=== PATIENT | male | born 2000 | race Caucasian/White ===

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

== ENCOUNTER 2022-01-02 13:34 | Outpatient (CLI) | payer OTHER, SELFPAY ==
--- NOTE | ~2022-01-02 | XR_ITS ---
EXAM: XR clavicle RT DATE: 01/02/2022 13:43 HISTORY: f/u displaced rt clavicle . COMPARISON: 12/25/2021. FINDINGS: Normal mineralization. Redemonstration of the oblique mid shaft right clavicular fracture, with increased, now 1 1/2 shaft width inferior displacement and increased overlap of 3.6 cm. No lyti c or blastic lesion. Joint spaces are maintained. No erosion or periosteal change. Soft tissues withi n normal limits. IMPRESSION: Right mid shaft clavicular fracture with increased inferior displacement and overlap. No significant interval healing change. Reviewed, dictated and finalized at location K. IMPRESSION: Right mid shaft clavicular fracture with increased inferior displac ement and overlap. No significant interval healing change.
== END 2022-01-02 13:35 | disposition home or self-care (01) ==
PROVIDERS: PCP Pediatrics; Visit Provider Orthopaedic Surgery
DX: S42.021A Displaced fracture of shaft of right clavicle, initial encounter for closed fracture (principal)
CPT/HCPCS: 73000

== ENCOUNTER 2022-01-05 00:27 | Day surgery (SDC) | payer OTHER, SELFPAY ==
[2022-01-03 15:40] VITALS: BMI 28.1
--- NOTE | 2022-01-03 15:49 | PC.NURSE ---
Report to the Outpatient Waiting Room, entrance under the green pavilion located off [facility], at time 0930 on date 01/05/22. OR Time: 1130. - You and your visitor will be asked to self-screen and do not enter if you have any COVID symptoms. - Only one visitor and NO children visitors are allowed at this time. - The patient visitor is requested to leave or wait in car when not with patient due to restrictions. - A mask is required within the hospital. Patients may have clear liquids (water, carbonated beverages, clear teas, apple juice) until 3 hours prior to surgery with a maximum of 20 ounces. - No food from midnight until time of surgery Take the following medications with a SIP of water the morning of surgery: PAIN PILL (IF NEEDED) Medications to discontinue per physician: N/A Date to take last dose: N/A Please no make-up, nail georgian, hairspray, perfume, deodorant, or body powder the day of surgery. No jewelry (including any body piercings) or valuables the day of surgery, leave them at home. Please take a shower or bath the night before, or the morning of, surgery with an antibacterial soap. Wear comfortable, loose fitting clothing. - Jewelry must be removed prior to entering the operating room. Rings and piercings that are not removed may be cut off. - The hospital will not accept responsibility for valuables. - Please leave all valuables, including medications, at home the day of surgery. If you are going home after surgery, a licensed yard driver must drive you home. - NO public transportation without another adult. - We recommend that an adult stay with you for 24 hours following discharge. - We also recommend that you do not drive, make important decision, drink alcoholic beverages, or take any drugs that were not prescribed by your health care provider for at least 24 hours after your discharge time. Follow any additional instructions given to you from your surgeon. If you or anyone in your household have experienced Covid symptoms in the past week, please notify your surgeon or the nurse liaison at the phone number below for possible testing. Telephone instructions given to PT - SHAILESH MONAHAN and asked if any additional questions and then verbalized understanding. Patient advised to call surgeon office or pre surgery nurse liaison [phone] if any additional questions.
[2022-01-05] VITALS (12 sets, daily range): BP systolic 105–128; BP diastolic 53–72; PULSE 60–79; RESP 12–21; TEMP 36.3–36.7; O2SAT 97–100
--- NOTE | ~2022-01-05 | XR_ITS ---
EXAMINATION: XR surgery orthopedic DATE: 01/05/2022 13:14 INDICATION: Right clavicle fracture fixation TECHNIQUE: 2 fluoroscopic images of the lateral right clavicle were obtained during procedure perform ed by Dr. Loyd. Radiologist was not present for the imaging or procedure. The amount of fluoroscop y time used during this procedure was 0.4 minutes. COMPARISON: 01/03/2020 FINDINGS: Interval reduction to near-anatomic alignment of a fracture at the junction of the lateral and middle third of the right clavicle. Fractional fixed the plate and screw along the cephalad margin. Glenohu meral and acromioclavicular joint spaces appear normal. No new fractures identified. IMPRESSION: 1. Near-anatomic alignment post open reduction internal fixation of a lateral right clavicle fracture . Reviewed, dictated and finalized at location A. IMPRESSION: 1. Near-anatomic alignment post open reduction internal fixation of a lateral r ight clavicle fracture.
--- NOTE | 2022-01-05 07:21 | WPDHPUPDATE1 ---
History and Physical Update Update Date/Time: 01/05/22 07:21 History and Physical has been reviewed, including an updated exam of the patient. There are NO changes in the patient's condition. Risks, benefits, and alternatives have been discussed and questions answered. Patient agrees to proceed with procedure.
[2022-01-05] MEDS: ACETAMINOPHEN 500 MG TABLET 1000 MG PO (09:29)
[2022-01-05] MEDS: LACTATED RINGERS 1,000 ML 30 ML IV CONT ×2 (09:30→15:35)
[2022-01-05] MEDS: KETOROLAC 15 MG/ML VIAL (*BKC) IV PUSH (09:36)
--- NOTE | 2022-01-05 10:36 | P.PNAN_ITS ---
Anes - Initial Pre Proc Eval Procedure: Operation Date: 01/05/22 11:00 Proposed Procedures p Open Reduction Internal Fixation Right Clavicle Fracture - Ravinder Loyd MD Date/Time: 01/05/22 10:36 Surgeon: Ravinder Loyd MD Pre Op Diagnosis: right clavicle fracture Patient Data Age: 21 Gender: M Height: 1.73 m Weight: 87 kg Last Vital Signs Temp 97.3 F L 01/05/22 09:30 Pulse 67 01/05/22 09:30 Resp 16 01/05/22 09:30 BP 107/65 01/05/22 09:30 Pulse Ox 99 01/05/22 09:30 O2 Del Method Room Air 01/05/22 09:30 Allergies Allergy/AdvReac Type Severity Reaction Status Date / Time No Known Allergies Allergy Verified 01/05/22 10:13 Home Medications Medication Instructions Recorded Confirmed Type oxycodone-acetaminophen 5 mg-325 1 tablet PO Q6H PRN pain #20 tabs 01/02/22 01/05/22 Rx mg tablet (Percocet) diazepam 5 mg tablet 5 mg PO TID PRN muscle spasm #10 01/04/22 01/05/22 Rx tabs ondansetron 8 mg disintegrating 8 mg PO Q6-8H PRN nausea and 01/04/22 01/05/22 Rx tablet vomiting #10 tabs sennosides 8.6 mg-docusate sodium 1 tab-cap PO BID #30 tabs 01/04/22 01/05/22 Rx 50 mg tablet Patient hx anesthesia problems: none Family hx anesthesia problems: none Results Review: All pre-operative results and documents have been reviewed as part of the pre- operative evaluation. [facility] Surgical History Surgical History Deficient knowledge of leg surgery Mole on inner thigh removed at [facility] in 2006. H/O Spinal surgery cyst removed on spine 2018 at [facility]. Family History Family History Mother Family history non-contributory Social History Social History Smoking status: Current every day smoker Tobacco type: e-cigarettes/vaping Alcohol intake: current Drinks per week: 2 Alcohol use details: social Substance use: current Substance use type: marijuana Living arrangements: with roommate(s) Gender identity (if verbalized by the patient): Male Spiritual care concerns: No Anes - Eval Final PreProcedure Day of Procedure 01/05/22 10:36 Patient weight: overweight Heart: regular rate and rhythm Lungs: clear to auscultation Airway: Mallampati scale class II Neurological: alert and oriented Last oral intake: >/= 8 hours ASA classification: II Emergent: no Anesthetic plan: proceed Anesthesia type and monitoring: general ETT and standard monitoring Results Review: All pre-operative results and documents have been reviewed as part of the pre- operative evaluation. Informed Consent: The patient's anesthetic plan and its attendant risks and benefits were discussed with the patient/family/POA. Questions were solicited and answers provided to the satisfaction of the patient/family/POA.
[2022-01-05] MEDS: ceFAZolin 2 GM/D5W 50 ML 2 GM/50 ML BAG IVPB (11:20)
--- NOTE | 2022-01-05 12:54 | SUR.PREOP ---
1000:PT STATES HAS HAD RECENT IS TEACHING BY ED AND HAS AN INCENTIVE SPIROMETER THE SAME THE ONE PRESENTED BY THE DOCUMENTING RN FOR TEACHING. PT ABLE TO VERBALIZE GOAL VOLUME OF 3000ML PEFORMANCE WITH THE ONE GIVEN TO HIM.
--- NOTE | 2022-01-05 13:24 | W.PM.PROC2 ---
Procedure Note - Detailed Date of Procedure 01/05/22 Pre-op Diagnosis right clavicle fracture Post-op Diagnosis Same Procedure Performed Open reduction internal fixation right clavicle fracture Surgeon Ravinder Loyd MD Service [employer] 1st product safety technical assistant Anesthesia General Indications 21-year-old who fell to the ground and sustained a right clavicle fracture with displacement. Patient desires operative treatment. Indicated for open reduction internal fixation. Findings Butterfly fragment anterior inferior portion of the fracture. Description of Procedure Patient identified in the preoperative holding. Informed consent given. Operative extremity marked. Patient received intravenous antibiotics. Patient brought to the operating room where underwent general anesthetic by anesthesia team. Positioned supine on operating room table. Time-out performed confirming the patient, site of the surgery and the plan. Patient then placed into a modified beach chair position with careful securing of the head and neck and airway. Right shoulder then prepped and draped usual sterile surgical fashion ChloraPrep skin solution. Local anesthetic with 0.5% Marcaine with epinephrine. Utilizing David's lines longitudinal incision was made over the clavicle fracture with a 15 blade knife. Hemostasis controlled electrocautery. Fascia incised in line with skin incision and elevated off of the clavicle medially and laterally. Care was taken not to strip excessive soft tissue from the clavicle or to dissect inferiorly. Fracture was then reduced and provisionally clamped in place. A dorsal 6 hole plate was then positioned and fixed with 3 screws medially and 3 screws distal to the fracture. Image intensification was then brought in and confirmed reduction placement of the hardware. Wound thoroughly irrigated and fascia repaired with 0 Vicryl interrupted suture. Subcutaneous tissue repaired with 2-0 Vicryl interrupted suture and skin repaired with 3-0 Monocryl running subcuticular stitch. Sterile dressing applied. The patient was then woken from anesthesia, extubated and taken to the recovery room in stable condition. All sponge, needle, instrument counts were correct at the end of the case. Implants Accu Med 6 hole clavicle plate with 3.5 mm screws Estimated Blood Loss 20 Drains No Packing No Pathology None sent Complications None Condition Stable Disposition PACU
[2022-01-05] MEDS: fentaNYL CITRATE INJ (*CRX) 100 MCG/2 ML VIAL 25 MCG IV PUSH (14:14)
[2022-01-05] MEDS: oxyCODONE HCL (*CRX) 5 MG TAB IR PO (15:51)
== END 2022-01-05 16:28 | disposition home or self-care (01) ==
PROVIDERS: PCP Pediatrics; Visit Provider Orthopaedic Surgery
PROC: (CPT 23515; principal; 2022-01-05 11:00)
DX: S42.031A Displaced fracture of lateral end of right clavicle, initial encounter for closed fracture (principal); S42.021A Displaced fracture of shaft of right clavicle, initial encounter for closed fracture; W50.0XXA Accidental hit or strike by another person, initial encounter; Y93.72 Activity, wrestling; F17.210 Nicotine dependence, cigarettes, uncomplicated; F12.90 Cannabis use, unspecified, uncomplicated; M25.511 Pain in right shoulder
CPT/HCPCS: 23515; 99199; A9270; C1713; J0690; J1100; J1170; J1885; J2250; J2405; J2704; J2710; J3010; J7120

== ENCOUNTER 2022-08-02 18:08 | Emergency (ER) | payer OTHER, SELFPAY ==
--- NOTE | 2022-08-02 18:14 | ED.LOWEXIN ---
HPI - Extremity Injury (Lower) General Chief Complaint: Extremity Problem,Nontraumatic Stated Complaint: left knee pain Time Seen by Provider: 08/02/22 18:14 Source: patient and RN notes reviewed History of Present Illness HPI Narrative: Patient is a 21-year-old male who presents to urgent care with complaints of chronic left knee pain for the last 5 or 6 months. [facility] and diagnosed with tendinitis and was told to do stretches and use ice and heat. Patient states he has increased pain with bending of the knee and has been taking ibuprofen. Patient has not up orthopedic. Denies any recent injury. No other acute complaints. No acute distress noted. Patient aware of the plan of care. Some parts of this dictation were generated by voice recognition software and may contain typographical and/or grammatical inaccuracies. Related Data Allergies Allergy/AdvReac Type Severity Reaction Status Date / Time No Known Allergies Allergy Verified 08/02/22 18:30 Review of Systems Review of Systems: CONSTITUTIONAL: Denies fever, chills, or sweats. EYES: Denies visual changes, redness, or discharge. ENT: Denies rhinorrhea, congestion, sore throat, or otalgia. CARDIOVASCULAR: Denies chest pain, palpitations, or edema. RESPIRATORY: Denies cough or dyspnea. GASTROINTESTINAL: Denies abdominal pain, nausea, vomiting, or diarrhea. GENITOURINARY: Denies dysuria or hematuria. SKIN: Denies rash or itching. MUSCULOSKELETAL: Reports of left knee pain NEUROLOGIC: Denies headache, numbness, or weakness. All other systems reviewed are negative, except as documented in HPI. [facility] Surgical History Surgical History Deficient knowledge of leg surgery Mole on inner thigh removed at [facility] in 2007. H/O Spinal surgery cyst removed on spine 2018 at [facility]. Family History Family History Mother Family history non-contributory Social History Social History Smoking status: Current every day smoker Tobacco type: e-cigarettes/vaping Alcohol intake: current Drinks per week: 2 Alcohol use details: social Substance use: current Substance use type: marijuana Living arrangements: with roommate(s) Gender identity (if verbalized by the patient): Male Spiritual care concerns: No Comments At the time of my signature, I reviewed and agree with the nursing past medical, surgical, social, and family history. There is no relevant family history pertinent to the patient complaint. Exam Narrative: GENERAL: This is a well-nourished, well-developed patient, in no apparent distress. HEAD: normocephalic, atraumatic. EYES: PERRL. Sclera clear/white. Vision is grossly intact. EARS: External ears normal NOSE: External nose normal with no obvious nasal discharge, nares without redness, no rhinorrhea. THROAT: Mucous membranes moist NECK: Neck supple SKIN: warm, intact with no suspicious lesions or rash, good texture and turgor. NEURO: awake, alert, and oriented to person, place and time. There were no obvious focal neurologic abnormalities. EXTREMITIES: No tenderness to the left lower extremity. No obvious deformity or injury to the left knee. Negative anterior drawer test. Positive strong left pedal pulse with capillary refill less than 2 seconds. Range of motion within normal limits with mild exacerbated pain on abduction. Course Course Level of Care: Express Care Visit Vital Signs Vital signs: Vital Signs Temperature 98.4 F 08/02/22 18:18 Pulse Rate 93 08/02/22 18:18 Respiratory Rate 18 08/02/22 18:18 Blood Pressure 130/69 08/02/22 18:18 Pulse Oximetry 99 08/02/22 18:18 Oxygen Delivery Room Air 08/02/22 18:18 Temperature 98.4 F 08/02/22 18:18 Pulse Rate 93 08/02/22 18:18 Respiratory Rate 18 08/02/22 18:1
[2022-08-02 18:18] VITALS: BP 130/69; PULSE 93; RESP 18; TEMP 36.9; O2SAT 99
== END 2022-08-02 18:50 | disposition home or self-care (01) ==
PROVIDERS: Emergency Provider Nurse Practitioner Family; PCP Pediatrics
DX: M76.9 Unspecified enthesopathy, lower limb, excluding foot (principal); F17.290 Nicotine dependence, other tobacco product, uncomplicated
CPT/HCPCS: 99213; G0463

== ENCOUNTER 2023-10-22 17:25 | Emergency (ER) | payer OTHER, SELFPAY ==
[2023-10-22 17:32] VITALS: BP 119/71; PULSE 68; RESP 20; TEMP 36.6; O2SAT 98
[2023-10-22 17:43] VITALS: BP 119/71; PULSE 68; RESP 20; TEMP 36.6; O2SAT 98
--- NOTE | 2023-10-22 17:49 | ED.URI ---
HPI - URI/Sore Throat General Chief Complaint: Upper Respiratory Infection Stated Complaint: Sore Throat Source: patient, RN notes reviewed and old records reviewed Mode of arrival: ambulatory Limitations: no limitations History of Present Illness HPI Narrative: 23 year old male presents to doctors hospital care with complaints of sore throat for the past 3 days with complaints of burning pain to throat and painful swallowing and some sinus congestion and drainage. Patient reports that he has taken some allergy medication for his symptoms. Patient reports that he noted some white spots on his tonsils. Patient reports that he has felt feverish denies any chills or sweats. MD elicited complaint: sore throat Onset (ago): day(s) (3) Consistency: constant Pain scale (0-10): 9 Able to tolerate fluids by mouth: Yes Exacerbating factors: swallowing Treatments prior to arrival: other (allergy medication) Related Data Allergies Allergy/AdvReac Type Severity Reaction Status Date / Time No Known Allergies Allergy Verified 10/22/23 17:42 Review of Systems Review of Systems: CONSTITUTIONAL: Reports malaise, chills, sweats, has felt feverish. EYES: Denies visual changes, redness, or discharge. ENT: Reports rhinorrhea, congestion,no sinus pain, no otalgia and positive for sore throat. CARDIOVASCULAR: Denies chest pain, palpitations, or edema. RESPIRATORY: Reports no cough.? Denies dyspnea. GASTROINTESTINAL: Denies abdominal pain, nausea, vomiting, diarrhea SKIN: Denies rash or itching. MUSCULOSKELETAL: Denies myalgia. NEUROLOGIC: Denies headache. All systems reviewed & are unremarkable except as noted in HPI and below PMFSH Past Medical History Medical History (Updated 10/23/23 @ 22:23 by Nevin Boston NP) Anxiety Arm fracture, left Closed fracture of coccyx Right clavicle fracture Surgical History Surgical History (Updated 10/23/23 @ 22:23 by Nevin Boston NP) Deficient knowledge of leg surgery [facility]. H/O Spinal surgery cyst removed on spine 2018 at [facility]. S/P wisdom tooth extraction Family History Family History Mother Family history non-contributory Social History Social History Smoking status: Current every day smoker Tobacco type: e-cigarettes/vaping Alcohol intake: current Drinks per week: 2 Alcohol use details: social Substance use: current Substance use type: marijuana Living arrangements: with roommate(s) Gender identity (if verbalized by the patient): Male Spiritual care concerns: No Comments At time of signature, agree with nursing past medical, surgical, social and family history. There is no relevant family history pertinent to the presenting complaint Exam Narrative: GENERAL: Well-appearing, well-nourished, and in no acute distress. HEAD: Normocephalic EYES: PERRLA, conjunctivae clear ENT: Nares clear, turbinates edematous and erythematous, clear discharge. Mucous membranes moist. TM pearly hernandez with dull light reflex bilaterally; no tragal tenderness. Oropharynx erythematous without lesions. Tonsils enlarged and with white exudate, no drooling, no hoarseness, no trismus, uvula midline. NECK: Supple. lymphadenopathy CHEST: Clear to auscultation, breath sounds equal. No wheezing, rhonchi, rales, or stridor. No respiratory distress, speaks in full sentences.SAO2 98% on room air HEART: Regular rate and rhythm. No murmur heard. SKIN: Warm, dry, no rash. NEURO: Alert and oriented x3. PSYCH: Normal mood and affect Course Course Emergency Course: Patient is aware of diagnosis, understands and agrees to treatment plan.? Anticipatory guidance given.? Patient agrees to follow-up as directed and is aware of reasons to seek care at the emergency department. Portions of this record may have b
== END 2023-10-22 18:30 | disposition home or self-care (01) ==
PROVIDERS: Emergency Provider Registered Nurse
DX: J03.90 Acute tonsillitis, unspecified (principal); F17.290 Nicotine dependence, other tobacco product, uncomplicated; F12.90 Cannabis use, unspecified, uncomplicated
CPT/HCPCS: 87081; 87880; 99213; G0463

== ENCOUNTER 2023-12-27 14:56 | Emergency (ER) | payer OTHER, SELFPAY ==
[2023-12-27 15:11] VITALS: BP 146/80; PULSE 83; RESP 15; TEMP 36.9; O2SAT 100
[2023-12-27 18:07] LABS: EDSTREPNEGPOS1 Presumptive Negative
--- NOTE | 2023-12-27 21:54 | ED.URI ---
HPI - URI/Sore Throat General Chief Complaint: Upper Respiratory Infection Stated Complaint: Sore Throat and Fever Time Seen by Provider: 12/27/23 15:34 Source: patient, RN notes reviewed and old records reviewed Mode of arrival: ambulatory Limitations: no limitations History of Present Illness HPI Narrative: 23-year-old male to [facility] for complaint of sore throat with white spots on his tonsils for 1 day. Patient reports that he was seen here approximately 6 weeks ago and placed on Augmentin. Patient states that he did not complete entire course of antibiotic treatment because he started feeling better. patient denies difficulty swallowing, headache, ear pain, fever, shortness of breath, GI complaints, known sick contacts, allergies. Patient able to tolerate fluids by mouth but states that throat pain increases with swallowing. Respirations even nonlabored. Patient in no acute distress. Related Data Allergies Allergy/AdvReac Type Severity Reaction Status Date / Time No Known Allergies Allergy Verified 12/27/23 15:26 Review of Systems Review of Systems: All systems reviewed & are unremarkable except as noted in HPI and below Constitutional: Constitutional: Reports no additional constitutional complaints Eyes: Eyes: Reports no additional eye complaints ENT: Reports as per HPI and Reports sore throat Cardiovascular: Cardiovascular: Reports no additional cardiovascular complaints, Denies chest pain and Denies dyspnea Respiratory: Respiratory: Reports no additional respiratory complaints, Denies cough and Denies dyspnea Musculoskeletal: Musculoskeletal: Reports no additional musculoskeletal complaints Neurologic: Reports system reviewed and no additional complaints, except as documented Psychiatric: Psychiatric: Reports no additional psychiatric complaints [facility] Past Medical History Medical History (Updated 12/27/23 @ 15:55 by Kia Segura APRN) Anxiety Arm fracture, left Closed fracture of coccyx Right clavicle fracture Surgical History Surgical History (Updated 10/23/23 @ 22:23 by Nevin Boston NP) Deficient knowledge of leg surgery Mole on inner thigh removed at [facility] in 2006. H/O Spinal surgery cyst removed on spine 2018 at [facility]. S/P wisdom tooth extraction Family History Family History Mother Family history non-contributory Social History Social History Smoking status: Current every day smoker Tobacco type: e-cigarettes/vaping Alcohol intake: current Drinks per week: 2 Alcohol use details: social Substance use: current Substance use type: marijuana Living arrangements: with roommate(s) Gender identity (if verbalized by the patient): Male Spiritual care concerns: No Comments At the time of my signature, I reviewed and agree with the nursing past medical, surgical, social, and family history. There is no relevant family history pertinent to the patient complaint. Exam Const: General: cooperative, no acute distress, alert, uncomfortable and well nourished Nutritional Appearance: well nourished Orientation/consciousness: patient oriented x3 Limitations: no limitations HENMT: Head: normal to inspection Ears: external ears normal Face/Nose/Sinus: Normal external nose present, Normal nares present, normal facial exam, No erythema and No edema Face and sinus: normal facial exam, no erythema and no edema Mouth: Yes Normal oral and palatal mucosa present Throat: abnormal tonsil bilateral erythema, exudates, hypertrophy 2+ and pitting Eyes: General: appearance normal, both eyes and all related structures Neck: Neck: normal visual inspection, full ROM and no meningeal signs Lymphatic: no lymphadenopathy noted and no lymphedema noted Chest: Chest palpation & inspection: normal inspection of the chest Resp: Effort & Inspection: normal
== END 2023-12-27 16:00 | disposition home or self-care (01) ==
PROVIDERS: Emergency Provider Nurse Practitioner Family
DX: J03.90 Acute tonsillitis, unspecified (principal); F17.290 Nicotine dependence, other tobacco product, uncomplicated; F12.90 Cannabis use, unspecified, uncomplicated
CPT/HCPCS: 87880; 99213; G0463

== ENCOUNTER 2024-05-13 11:39 | Emergency (ER) | payer OTHER, SELFPAY ==
--- NOTE | ~2024-05-13 | XR_ITS ---
Clinical Indication: Cough PA and lateral views of the chest: Comparison: None Findings: The lungs are clear, without evidence of focal consolidation or pleural effusion. Cardiome diastinal silhouette is within normal limits. Bones and soft tissues are unremarkable. Impression: Normal chest. Reviewed, dictated and finalized at [facility]. ING CONSULTANT Impression: Normal chest.
[2024-05-13 11:59] VITALS: BP 146/76; PULSE 88; RESP 20; TEMP 37.5; O2SAT 100
--- NOTE | 2024-05-13 13:40 | ED.GENADULT ---
HPI - General Adult General Chief complaint: Upper Respiratory Infection Stated complaint: Right Side Pain/Fever/Chills Source: patient Mode of arrival: ambulatory Limitations: no limitations History of Present Illness HPI narrative: Patient presents for evaluation of right-sided rib pain and respiratory symptoms. Symptom onset 1 week ago. He states pain is in the right anterolateral lower ribs. His pain is sharp and burning. He rates his pain as 8/10 in severity at rest and 10/10 with movement, inspiration and coughing. He has experienced a cough and fever. Denies any chills, nausea, vomiting, diarrhea. His siblings currently have pneumonia. He is concerned about pneumonia as well. He does vape and smoke marijuana. Related Data Home Medications ?Medication ?Instructions ?Recorded ?Confirmed ?Last Taken ?Type clindamycin phosphate 1 % lotion topical 05/13/24 Unknown History doxycycline hyclate 100 mg capsule 100 mg PO Q12H 05/13/24 05/13/24 Unknown History Allergies Allergy/AdvReac Type Severity Reaction Status Date / Time No Known Allergies Allergy Verified 05/13/24 12:34 Review of Systems Review of Systems: CONSTITUTIONAL: Reports fever. Denies chills, or sweats. EYES: Denies visual changes, redness, or discharge. ENT: Denies rhinorrhea, congestion, sore throat, or otalgia. CARDIOVASCULAR: Denies chest pain, palpitations, or edema. RESPIRATORY: Reports cough and wheezing. GASTROINTESTINAL: Denies abdominal pain, nausea, vomiting, or diarrhea. GENITOURINARY: Denies dysuria or hematuria. SKIN: Denies rash or itching. MUSCULOSKELETAL: Reports pain in the right anterolateral ribs NEUROLOGIC: Denies headache, numbness, dizziness, or weakness. PSYCHIATRIC: Denies anxiety or depression. [facility] Past Medical History Medical History Closed fracture of coccyx Arm fracture, left Anxiety Right clavicle fracture Surgical History Surgical History S/P wisdom tooth extraction H/O Spinal surgery cyst removed on spine 2018 at [facility]. Deficient knowledge of leg surgery Mole on inner thigh removed at [facility] in 2006. Family History Family History Mother Family history non-contributory Social History Social History Smoking status: Current every day smoker Tobacco type: e-cigarettes/vaping Alcohol intake: current Drinks per week: 2 Alcohol use details: social Substance use: current Substance use type: marijuana Living arrangements: with roommate(s) Gender identity (if verbalized by the patient): Male Spiritual care concerns: No Exam Narrative: GENERAL: Well-appearing, well-nourished, and in no acute distress. HEAD: Normocephalic, atraumatic. EYES: PERRLA and EOMI. ENT: Nares clear, no rhinorrhea or epistaxis. Mucous membranes moist. Oropharynx without tonsillar hypertrophy exudate or other lesions. Bilateral TMs pearly hernandez nonbulging NECK: Supple. No adenopathy or masses. No carotid bruits or JVD CHEST: There is tenderness right anterolateral ribs. Wheezing noted in bilateral lung morris. Cough present on exam. HEART: Regular rate and rhythm. No murmur heard. Normal peripheral pulses. ABDOMEN: Soft, nontender, nondistended, normal active bowel sounds. EXTREMITIES: Normal range of motion. No edema. SKIN: Warm, dry, no rash. NEURO: No focal deficits. Alert and oriented x3. PSYCH: Normal mood and affect. Course Course Emergency Course: This is a 23-year-old male who presented for evaluation of respiratory symptoms. Chest x-ray was read as normal however clinically his exam is consistent with pneumonia. Through shared decision making opted to proceed with antibiotic therapy including azithromycin, Augmentin, prednisone, albuterol. Increase hydration. Advised smoking cessation. Follow up with primary provider. Go to the ER for worsening symptoms. Pt in agreement with plan of care. Level of Care: Express Care Visit Vital Signs Vital signs: Vital Signs Temperature 37.5 C 05/13/24 11:59 Pulse Rate 88 05/13/24 11:59 Respiratory Rate 20 05/13/24 11:59 Blood Pressure 146/76 H 05/13/24 11:59 Pulse Oximetry 100 05/13/24 11:59 Oxygen Delivery Room Air 05/13/24 11:59 Temperature 37.5 C 05/13/24 11:59 Pulse Rate 88 05/13/24 11:59 Respiratory Rate 20 05/13/24 11:59 Blood Pressure 146/76 H 05/13/24 11:59 Pulse Oximetry 100 05/13/24 11:59 Oxygen Delivery Room Air 05/13/24 11:59 Medical Decision Making Vital Signs Vital Signs: Vital Signs Temperature 37.5 C 05/13/24 11:59 Pulse Rate 88 05/13/24 11:59 Respiratory Rate 20 05/13/24 11:59 Blood Pressure 146/76 H 05/13/24 11:59 Pulse Oximetry 100 05/13/24 11:59 Oxygen Delivery Room Air 05/13/24 11:59 Temperature 37.5 C 05/13/24 11:59 Pulse Rate 88 05/13/24 11:59 Respiratory Rate 20 05/13/24 11:59 Blood Pressure 146/76 H 05/13/24 11:59 Pulse Oximetry 100 05/13/24 11:59 Oxygen Delivery Room Air 05/13/24 11:59 Imaging Data Radiologist's impression: Ordering Physician: Stanley Stephens APRN Date of Service: 05/13/24 Procedure(s): XR chest 2V Accession Number(s): [id number] cc: Stanley Stephens APRN; [employer] 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 Cardiomediastinal silhouette is within normal limits. Bones and soft tissues are unremarkable. Impression: Normal chest. Discharge Plan Discharge Clinical Impression: At high risk for pneumonia Patient Disposition: Home, Self-Care Condition: Stable Instructions: Antibiotic Form, Community Acquired Pneumonia (DC) Patient Language: Turkish Prescriptions: New azithromycin 250 mg tablet See Rx Instructions .ROUTE .COMPLEX Qty: 6 0RF Rx Instructions: For 250 mg dose pack: take 500 mg today (day 1), then 250 mg for 4 days (days 2-5) amoxicillin-pot clavulanate 875-125 mg tablet 1 tablet PO Q12H Qty: 20 0RF prednisone 50 mg tablet 50 mg PO DAILY Qty: 5 0RF albuterol sulfate 90 mcg/actuation HFA aerosol inhaler 2 puff inhalation QID PRN (Reason: shortness of breath or wheezing) Qty: 8.5 0RF No Action doxycycline hyclate 100 mg capsule 100 mg PO Q12H clindamycin phosphate 1 % lotion TOPICAL Follow-up/Referrals: Carlos Metcalf MD [Physician] - Time of Disposition: 14:18
== END 2024-05-13 14:20 | disposition home or self-care (01) ==
PROVIDERS: Emergency Provider Nurse Practitioner
DX: R07.81 Pleurodynia (principal); R06.2 Wheezing; R05.9 Cough, unspecified; Z20.89 Contact with and (suspected) exposure to other communicable diseases; F17.290 Nicotine dependence, other tobacco product, uncomplicated; F12.90 Cannabis use, unspecified, uncomplicated
CPT/HCPCS: 71046; 99213; G0463

== ENCOUNTER 2024-10-14 14:53 | Emergency (ER) | payer OTHER, SELFPAY ==
--- OUTSIDE RECORDS SUMMARY | 2024-10-14 14:56 | XMS_ITS | Clinical Summary ---
Author Organization [facility] Address [address] [place] [address] Phone Care Team Providers Care Tester Waste Disposal Leakage Name Role Phone Sanjana Melo MD Primary Care Provider + [phone] Medications No known medications Active Problems No known active problems Family History Medical History Relation Name Comments No Known Problems Father Jose Martin No Known Problems Mother Trisha Relation Name Status Comments Brother 6 Alive Father Jose Martin Alive Mother Trisha Alive Sister 2 Alive Social History Tobacco Use Types Packs/Day Years Used Date Smoking Tobacco: Never Smokeless Tobacco: Never Alcohol Use Standard Drinks/Week Comments Yes 0 (1 standard drink = 0.6 oz pur e alcohol) Socially Sexually Active Control Partners Comments Yes Female Sex and Gender Information Value Date Recorded Sex Assigned at Not on file Legal Sex Male 9:36 AM CDT Gender Identity Not on file Sexual Orientation Not on file 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 Not on file Not on file Not on file Plan of Treatment Health Maintenance Due Date Last Done Comments Hepatitis C Virus (HCV) Screening 2002 Hepatitis B Immunization (3 of 3 - 3-dose series) 05/08/2003 03/13/2003, 2002 Influenza Immunization (#1) 01/13/202402/11, 01/30/2019, 05/30/2018, Additional history exists SARS-COV-2 Immunization ( - season) 2024 09/25/2020, 09/04/2020 Respiratory Syncytial Virus (RSV) Immunization (Adult) (1 - 1-dose 75+ series) 2077 Pneumococcal Immunization Combined Aged Out 03/31/2004, 03/13/2003, 01/09/2003, Additional history exists No longer eligible based on patient's age to complete this topic Hepatitis A Immunization Discontinued 04/26/2006, 10/12 Measles Mumps Rubella (MMR) Immunization Discontinued 12/05/2007, 09/18/2003 Polio (IPV) Immunization Discontinued 008, 12/24/2003, 01/09/2003, Additional history exists Varicella Immunization Discontinued 12/05/2007, 2003 DTaP/Tdap/Td Immunization Discontinued 2012, 12/05/2007, 12/24/2003, Additional history exists TdaP Immunization Completed 11/29/2012 Human Papillomavirus (HPV) Immunization Completed 05/30/2018, 12/01/2016 Meningococcal Immunization (ACWY) Completed 10/17/2018, 01/07/2014 Meningococcal B Immunization Completed 11/20/2018, 10/17/2018 Rotavirus Immunization Aged Out No lo nger eligible based on patient's age to complete this topic Goals Goal Patient Goal Type Associated Problems Recent Progress Patient-Stated? Author I would like a better understanding of whats wrong with me. I feel different then I used to. Behavioral Health Yes Zarina Dunn, [facility] Insurance [employer] Care Teams Tester Waste Disposal Leakage Relationship Specialty Start Date End Date Sanjana Melo MD [address] [place] [address] PCP - General Pediatrics 10/25/20
[2024-10-14 15:03] VITALS: BP 143/77; PULSE 91; RESP 16; TEMP 36.9; O2SAT 99
[2024-10-14] MEDS: TETANUS,DIPHTHERIA,AC PERTUSSIS ADULT (0.5 ML) BOOSTRIX IM (15:47)
--- NOTE | 2024-10-14 15:48 | ED_ITS ---
HPI - General Adult General Chief complaint: Skin/Abscess/Foreign Body Stated complaint: Puncture Wound/Right Foot Source: patient History of Present Illness HPI narrative: Pt presents for evaluation of a puncture wound to the right foot. He was walking barefoot three days and and his right foot stepped on a piece of metal. He states it was not gibran. He removed the piece of metal at that time and the puncture wound was very superficial, barely puncturing the skin. He has experienced a throbbing sensation in the area since that time. He denies any fever, chills, nausea, vomiting or purulence from the area. He is not diabetic. Date of last tetanus unknown. Related Data Home Medications ?Medication ?Instructions ?Recorded ?Confirmed ?Last Taken ?Type clindamycin phosphate 1 % lotion topical 05/13/24 Unknown History Allergies Allergy/AdvReac Type Severity Reaction Status Date / Time No Known Allergies Allergy Verified 05/13/24 12:34 Review of Systems Review of Systems: CONSTITUTIONAL: Denies fever, chills, or sweats. EYES: Denies visual changes, redness, or discharge. ENT: Denies rhinorrhea, congestion, sore throat, or otalgia. CARDIOVASCULAR: Denies chest pain, palpitations, or edema. RESPIRATORY: Denies cough or dyspnea. GASTROINTESTINAL: Denies abdominal pain, nausea, vomiting, or diarrhea. GENITOURINARY: Denies dysuria or hematuria. SKIN: Reports recent superficial puncture wound to the plantar aspect of the right foot. Denies drainage from the area. Denies rash or itching. MUSCULOSKELETAL: Reports right foot pain. Denies other joint pain NEUROLOGIC: Denies headache, numbness, dizziness, or weakness. PSYCHIATRIC: Denies anxiety or depression. [facility] Past Medical History Medical History Closed fracture of coccyx Arm fracture, left Anxiety Right clavicle fracture Surgical History Surgical History S/P wisdom tooth extraction H/O Spinal surgery cyst removed on spine 2018 at [facility]. Deficient knowledge of leg surgery Mole on inner thigh removed at [facility] in 2006. Family History Family History Mother Family history non-contributory Social History Social History Smoking status: Current every day smoker Tobacco type: e-cigarettes/vaping Alcohol intake: current Drinks per week: 2 Alcohol use details: social Substance use: current Substance use type: marijuana Living arrangements: with roommate(s) Gender identity (if verbalized by the patient): Male Spiritual care concerns: No Exam Narrative: GENERAL: Well-appearing, well-nourished, and in no acute distress. HEAD: Normocephalic, atraumatic. EYES: PERRLA and EOMI. ENT: Nares clear, no rhinorrhea or epistaxis. Mucous membranes moist. Oropharynx without tonsillar hypertrophy exudate or other lesions. Bilateral TMs pearly hernandez nonbulging NECK: Supple. No adenopathy or masses. No carotid bruits or JVD CHEST: Clear to auscultation. No respiratory distress. No wheezes rales or rhonchi HEART: Regular rate and rhythm. No murmur heard. Normal peripheral pulses. ABDOMEN: Soft, nontender, nondistended, normal active bowel sounds. EXTREMITIES: Normal range of motion. No edema. SKIN: There is a pinpoint puncture wound to plantar aspect of the right foot. There is no active drainage. Warm, dry, no rash. NEURO: No focal deficits. Alert and oriented x3. PSYCH: Normal mood and affect. Course Course Emergency Course: This is a 24-year-old male who presented for evaluation of a puncture wound to plantar aspect of the right foot. There is no evidence of infection on exam. Was updated on tetanus. Advised on wound care. Follow-up with primary provider. Go to the ER for evidence of infection or worsening symptoms. Patient in agreement with plan of care. Level of Care: Express Care Visit Vital Signs Vital signs: Vital Signs Temperature 36.9 C 10/14/24 15:03 Pulse Rate 91 10/14/24 15:03 Respiratory Rate 16 10/14/24 15:03 Blood Pressure 143/77 H 10/14/24 15:03 Pulse Oximetry 99 10/14/24 15:03 Oxygen Delivery Room Air 10/14/24 15:03 Temperature 36.9 C 10/14/24 15:03 Pulse Rate 91 10/14/24 15:03 Respiratory Rate 16 10/14/24 15:03 Blood Pressure 143/77 H 10/14/24 15:03 Pulse Oximetry 99 10/14/24 15:03 Oxygen Delivery Room Air 10/14/24 15:03 Medical Decision Making Vital Signs Vital Signs: Vital Signs Temperature 36.9 C 10/14/24 15:03 Pulse Rate 91 10/14/24 15:03 Respiratory Rate 16 10/14/24 15:03 Blood Pressure 143/77 H 10/14/24 15:03 Pulse Oximetry 99 10/14/24 15:03 Oxygen Delivery Room Air 10/14/24 15:03 Temperature 36.9 C 10/14/24 15:03 Pulse Rate 91 10/14/24 15:03 Respiratory Rate 16 10/14/24 15:03 Blood Pressure 143/77 H 10/14/24 15:03 Pulse Oximetry 99 10/14/24 15:03 Oxygen Delivery Room Air 10/14/24 15:03 Discharge Plan Discharge Clinical Impression: Puncture wound of foot, right Patient Disposition: Home Condition: Stable Instructions: Antibiotic Form, Puncture Wound (DC) Additional Instructions: WASH AREA TWICE DAILY WITH ANTIBACTERIAL SOAP AND WATER Patient Language: Serbian Prescriptions: No Action clindamycin phosphate 1 % lotion TOPICAL albuterol sulfate 90 mcg/actuation HFA aerosol inhaler 2 puff inhalation QID PRN (Reason: shortness of breath or wheezing) Qty: 8.5 0RF Follow-up/Referrals: Lulu Miller DO [Physician] - Time of Disposition: 15:47
== END 2024-10-14 15:51 | disposition home or self-care (01) ==
PROVIDERS: Emergency Provider Nurse Practitioner
DX: S91.331A Puncture wound without foreign body, right foot, initial encounter (principal); F17.290 Nicotine dependence, other tobacco product, uncomplicated; Z23 Encounter for immunization; W26.8XXA Contact with other sharp object(s), not elsewhere classified, initial encounter
CPT/HCPCS: 90471; 90715; 99212; G0463